=== PATIENT | female | born 1960 | race Caucasian/White ===

== ENCOUNTER 2018-09-27 08:17 | Inpatient (IN) | payer OTHER ==
[~2018-09-27] VITALS: Ht 172.7 cm; Wt 88.5 kg
[2018-09-27 08:33] VITALS: BP 129/83
[2018-09-27] MEDS ORDERED: ZOLOFT25 MG PO (08:38)
[2018-09-27 08:47] LABS: ABSOLUTE MONOCYTES 0.6 thou/uL (0.0-1.2); ABSOLUTE NEUTROPHILS 2.7 thou/uL (1.6-8.1); BASOPHILS 0.4 %; EOSINOPHILS 0.9 %; HEMATOCRIT 43.3 % (37.0-47.0); HEMOGLOBIN 14.8 gm/dL (12.0-15.0); MCH 29.1 pg (26.0-34.0); MCHC 34.2 g/dL (28.0-37.0); MCV 85.1 fL (80.0-100.0); MONOCYTES 14.4 %; MPV 7.6 fl. (7.2-11.1); NUCLEATED RBCS 0 /100WBC; PLATELET COUNT* 317 thou/uL (150-400); POLYS 62.3 %; RBC 5.09 mil/uL (4.20-5.00); WBC 4.4 thou/uL (4.0-11.0)
[2018-09-27 08:50] LABS: URINE BLOOD NEGATIVE (Negative); URINE CLARITY CLEAR; URINE COLOR YELLOW; URINE GLUCOSE-RANDOM NEGATIVE (Negative); URINE LEUKOCYTES-REFLEX NEGATIVE (Negative); URINE NITRITE-REFLEX NEGATIVE (Negative); URINE PROTEIN 1+ (Negative); URINE SPECIFIC GRAVITY >= 1.030 (1.005-1.030); URINE UROBILINOGEN 0.2 E.U./dl (0.2-1.0)
[2018-09-27 08:52] LABS: ACETEST (KETONE CONFIRMATORY) Large (Negative); URINE BILIRUBIN 2+ (Negative); URINE KETONES 3+ (Negative)
[2018-09-27 08:53] LABS: ANION GAP 15 mmol/L (7-16); BUN 14 mg/dL (7-18); CALCIUM 8.1 mg/dL (8.5-10.1); CHLORIDE 99 mmol/L (98-107); CO2 19 mmol/L (21-32); CREATININE 0.7 mg/dL (0.6-1.3); GLUCOSE 103 mg/dL (70-99); POTASSIUM 3.3 mmol/L (3.5-5.1); SODIUM 133 mmol/L (136-145)
[2018-09-27 08:55] LABS: ICTOTEST (BILI CONFIRMATORY) Negative (Negative)
[2018-09-27 09:00] LABS: ALBUMIN 3.3 g/dL (3.4-5.0); ALKALINE PHOSPHATASE 81 U/L (46-116); LIPASE 271 U/L (73-393); SGOT 38 U/L (15-37); SGPT 15 U/L (30-65); TOTAL BILIRUBIN 0.4 mg/dL (<0.1-1.0); TOTAL PROTEIN 6.7 g/dL (6.4-8.2); TROPONIN-I LEVEL <0.06 ng/mL (<0.06)
[2018-09-27 10:39] VITALS: BP 104/68
[2018-09-27 11:00] VITALS: BP 106/54
--- NOTE | 2018-09-27 11:47 | EKG ---
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 : 1960 Requested By: Amando Jasso Order Number: [id number] MD: Almas Hollis Measurements Intervals [place] Rate: 108 P: 84 TX: 114 QRS: 72 QRSD: 92 T: -75 QT: 335 QTc: 449 Interpretive Statements Sinus tachycardia Probable left atrial enlargement Borderline repolarization abnormality No previous ECG available for comparison Electronically Signed On 09-27-2018 11:46:56 [employer] 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
[2018-09-27 16:08] VITALS: BP 112/66
[2018-09-27 23:00] VITALS: BP 107/62
[2018-09-28] VITALS: BP 113/55
[2018-09-28 03:59] VITALS: BP 105/56
[2018-09-28 05:18] LABS: HEMATOCRIT 35.6 % (37.0-47.0); MCH 29.1 pg (26.0-34.0); MCHC 33.4 g/dL (28.0-37.0); MPV 7.9 fl. (7.2-11.1); RBC 4.1 mil/uL (4.20-5.00); RDW-CV 14.3 % (10.5-14.5); WBC 3.5 thou/uL (4.0-11.0)
[2018-09-28 05:34] LABS: ALBUMIN 2.2 g/dL (3.4-5.0); CALCIUM 6.6 mg/dL (8.5-10.1); CREATININE 0.6 mg/dL (0.6-1.3); MAGNESIUM 1.6 mg/dL (1.8-2.4); TOTAL BILIRUBIN 0.3 mg/dL (<0.1-1.0); TOTAL PROTEIN 4.7 g/dL (6.4-8.2)
[2018-09-28 05:39] LABS: HEMOGLOBIN 11.9 gm/dL (12.0-15.0)
[2018-09-28 08:00] VITALS: BP 103/61
[2018-09-28 12:18] VITALS: BP 138/70
[2018-09-28 16:00] VITALS: BP 106/47
[2018-09-28 19:50] VITALS: BP 115/59
[2018-09-29] VITALS: BP 115/57
[2018-09-29 04:00] VITALS: BP 117/64
[2018-09-29 06:00] LABS: HEMOGLOBIN 11.6 gm/dL (12.0-15.0); MCH 29.2 pg (26.0-34.0); MCV 85.8 fL (80.0-100.0); MPV 7.7 fl. (7.2-11.1); RBC 3.96 mil/uL (4.20-5.00); RDW-CV 14.4 % (10.5-14.5); WBC 4.1 thou/uL (4.0-11.0)
[2018-09-29 06:08] LABS: CALCIUM 7.3 mg/dL (8.5-10.1); CREATININE 0.5 mg/dL (0.6-1.3); MAGNESIUM 1.7 mg/dL (1.8-2.4); POTASSIUM 3.7 mmol/L (3.5-5.1)
[2018-09-29 08:00] VITALS: BP 102/66
[2018-09-29 12:00] VITALS: BP 124/64
[2018-09-29 16:00] VITALS: BP 93/53
[2018-09-29 19:40] VITALS: BP 118/66
[2018-09-30] VITALS: BP 114/59
[2018-09-30 04:00] VITALS: BP 124/72
[2018-09-30 08:00] VITALS: BP 110/75
[2018-09-30 12:41] VITALS: BP 116/60
[2018-09-30 16:24] VITALS: BP 119/61
[2018-09-30 20:00] VITALS: BP 146/59
[2018-10-01] VITALS: BP 109/61
[2018-10-01 04:00] VITALS: BP 107/66
[2018-10-01 12:19] VITALS: BP 107/66
== END 2018-10-01 12:30 | disposition home or self-care (01) | DRG 392 ==
LOC: M.ERS 08:17 → M.TBA-ER 09:31 → M.2W 09:31
PROVIDERS: Family Medicine; ADMIT Internal Medicine
DX: A08.4 Viral intestinal infection, unspecified (principal); R65.10 Systemic inflammatory response syndrome (SIRS) of non-infectious origin without acute organ dysfunction; E44.1 Mild protein-calorie malnutrition; F32.9 Major depressive disorder, single episode, unspecified; F41.9 Anxiety disorder, unspecified; E86.0 Dehydration; Z79.899 Other long term (current) drug therapy; Z28.21 Immunization not carried out because of patient refusal; Z68.29 Body mass index [BMI] 29.0-29.9, adult